=== PATIENT | female | born 1940 | race Caucasian/White ===

== ENCOUNTER → 2020-11-19 | Outpatient (CLI) | payer MEDICARE, OTHER | LOC: LAB 11:22 | PROVIDERS: ATTEND Student in an Organized Health Care Education/Training Program | DX: I48.21 Permanent atrial fibrillation (principal) | CPT/HCPCS: 36415; 85610 ==

== ENCOUNTER → 2020-11-26 | Outpatient (CLI) | payer MEDICARE, OTHER | LOC: LAB 10:50 | PROVIDERS: ATTEND Student in an Organized Health Care Education/Training Program | DX: I48.21 Permanent atrial fibrillation (principal) | CPT/HCPCS: 36415; 85610 ==

== ENCOUNTER → 2021-04-22 | Outpatient (CLI) | payer MEDICARE, OTHER | LOC: LAB 13:06 | PROVIDERS: ATTEND Student in an Organized Health Care Education/Training Program | DX: I48.21 Permanent atrial fibrillation (principal) | CPT/HCPCS: 36415; 85610 ==

== ENCOUNTER 2021-06-18 02:23 | Inpatient (IN) | payer MEDICARE, OTHER ==
[~2021-06-18] VITALS: Ht 162.6 cm; Wt 101.5 kg
--- NOTE | 2021-06-18 02:53 | PHYS DOC ---
Past History Past Medical History: CHF, Heart Disease, Hypothyroid Past Medical History Gout (MONICA GRACIA MD) General Adult EDM: Chief Complaint: BACK PAIN OR INJURY HPI: HPI: ".. I ve been falling... My back hurts... been sick.. a couple days.... weak... fever..." Patient is a 80 year old female who presents with above hx and complaints frequent falls the last 2 days, weakness, fever, nausea and vomiting, and lumbar sacral back pain. Pt. follows with Dr. Mervin Locke. Pt. is on Coumadin for cardiac valvular disease. Patient has history of both aortic and mitral valve issues. Has had a bovine aortic value and has mitral dysfunctions. Patient has had both Covid vaccinations with a booster. Patient did have flu vaccination 10 days ago. Patient has follows with Dr. Quesada at [facility]. Has followed with for CHF and CADz. The pt. somewhat a poor historian , has taken Ambien before coming to ED.. The son and states patient has been sick for the last 2 days with nausea and vomiting and falls. Pt. has past medical history of gout, hypertension, elevated cholesterol, insomnia, CHF, cor onary artery disease, chronic pain, hypothyroidism, subdural hematoma, and diabetes. Patient said previous thyroidectomy 1987, gallbladder in 1976. History of liver cyst, subdural hematoma in 2007. Heart valve replacement in 2015-aortic and ventral hernia repairs in 2020. (MONICA GRACIA MD) Review of Systems: Review of Systems: Constitutional: Complains of fever Eyes: Denies change in visual acuity HENT: Denies nasal congestion or sore throat Respiratory: Complains of shortness of breath Cardiovascular: Denies chest pain or edema GI: Complains of nausea and vomiting abdominal pain, . : Denies dysuria Musculoskeletal: Complains of lumbar sacral back pain and generalized joint pain Integument: Denies rash Neurologic: Denies headache, focal weakness or sensory changes Endocrine: Denies polyuria or polydipsia Lymphatic: Denies swollen glands Psychiatric: History of anxiety (MONICA GRACIA MD) Family History: Family History: Noncontributory to presentation (MONICA GRACIA MD) Current Medications: Current Meds: See nursing for home meds (MONICA GRACIA MD) Allergies: Allergies: Allergic to adhesive tape, sulfa, IVP dye and codeine's (MONICA GRACIA MD) Physical Exam: PE: Constitutional: Moderate acute distress, non-toxic appearance. [] HENT: Normocephalic, atraumatic, bilateral external ears normal, oropharynx moist, no oral exudates, nose normal. [] Eyes: PERRLA, EOMI, conjunctiva normal, no discharge. [] Neck: Normal range of motion, no tenderness, supple, no stridor.JVD siting position. Surgical scar Cardiovascular:Heart rate regular rhythm, Mitral / Aortic murmur. PMI to L:t. [] Lungs & Thorax: Bilateral breath sounds equal at apexes, with crackles throughout bilateral bases. Old midline surgical scar, . Some rhonchi on auscultation Abdomen: Bowel sounds normal, soft, no tenderness, no masses, no pulsatile masses. Obese. Multiple old surgery scars Skin: Warm, dry, no erythema, no rash. Poor turgor. Back: Lumbar sacral tenderness, no CVA tenderness. [] Extremities: No tenderness, no cyanosis, no clubbing, ROM intact, bilateral lower leg edema. [] No cording appreciated Neurologic: Alert and oriented X 3, but very slow to respond appear to be oversedated, moves all extremities on request, does have distal sensory, Psychologic: Affect anxious,, judgement impaired mood depressed (MONICA GRACIA MD) EKG: EKG: My interpretation EKG shows a sinus rhythm at 70 bpm. Slightly prolonged QT interval at 442 ms. QTC is 480 ms. No findings of acute STEMI with contralateral changes. Time of EKG is 0449 hrs. [] (MONICA GRACIA MD) Radiology/Procedures: Radiology/Procedures: [] (MONICA GRACIA MD) Impressions: CT LUMBAR SPINE WO, CT CHEST_ABDOMEN_ AND PELVIS WITHOUT CONTRAST INDICATION: fall, pain COMPARISON: None. TECHNIQUE: Multiple contiguous axial images were obtained throughout the chest, abdomen, and pelvis without the use of IV contrast. Axial images were reformatted into coronal and sagittal planes. One or more of the following dose reduction techniques were utilized: Automated exposure control (AEC), Adjustment of mA and/or kV according to patient size, Use of iterative reconstruction technique such as ASiR, CT scan done according to ALARA and image gently/image wisely. FINDINGS: There is no axillary, mediastinal, or hilar adenopathy, although evaluation of the hany is limited without IV contrast. Calcified mediastinal and hilar lymph nodes consistent with remote granulomatous disease. The thoracic aorta diameter is normal. Cardiomegaly. Coronary artery atheroscler otic disease. Aortic valve leaflet calcifications. Mitral annular opacification. There is no pericardial effusion. The central airways are patent. Bibasilar dependent and subsegmental atelectasis. Few small pulmonary nodules measuring up to 5 mm. Evaluation of solid abdominal viscera is limited without the use of IV contrast. However, the liver, gallbladder, spleen, pancreas, and adrenal glands are unremarkable. No hydronephrosis. Bilateral nonobstructive renal calculi. There is no significant mesenteric or retroperitoneal adenopathy identified, though evaluation is limited without intravenous contrast. No pneumoperitoneum. Mild free fluid in the right paracolic gutter and adjacent to the spleen. Colonic diverticulosis. Moderate aortoiliac atherosclerotic disease. The bladder is unremarkable. Uterus is present. There is no significant pelvic ascites. No significant iliac or inguinal adenopathy is identified. Acute L5 compression deformity with 30 percent loss of vertebral body height. No osseous retropulsion. IMPRESSION: 1. Acute L5 compression deformity with 30 percent height loss. No osseous retropulsion. 2. Evaluation of abdominal solid organs is impaired by lack of intravenous contrast. Allowing for this, there is mild scattered abdominal free fluid but no large hematoma or large solid organ laceration visualized. 3. Few small indeterminate pulmonary nodules measuring up to 5 mm. Consider 12 month follow-up chest CT to assess stability if there are risk factors (history of smoking, history of malignancy, etc.). 4. Colonic diverticulosis. 5. Nonobstructive renal calculi. Electronically signed by: Diomedes Moon MD (06/18/2021 6:49 AM) [facility] DICTATED AND SIGNED BY: DIOMEDES MOON MD DATE: 06/18/21 0634 CC: MERVIN LOCKE MD; MONICA GRACIA MD ~MTH0 0 CT HEAD AND C-SPINE WO Date: 06/18/2021 3:55 AM Clinical Indication: Reason: fall, neck pain / Spl. Instructions: / History: Comparison: None. Technique: 5 mm axial tomographic images were obtained of the head without contrast. These were viewed on brain and bone windows. Noncontrast CT of the cervical spine was performed. Sagittal and coronal reformats were performed and evaluated. One or more of the following dose reduction techniques were utilized: Automated exposure control (AEC), Adjustment of mA and/or kV according to patient size, Use of iterative reconstruction technique such as ASiR, CT scan done according to ALARA and image gently/image wisely HEAD FINDINGS: Mild generalized cerebral and cerebellar volume loss. Mild nonspecific periventricular hypoattenuation, most commonly seen with chronic small vessel ischemic disease. Postsurgical changes of right frontotemporal craniotomy with small area of underlying encephalomalacia. No intra- or extra-axial mass or fluid collection. No acute hemorrhage. The ventricles are normal in size, shape, and morphology. The jackson-white matter junction is normal. The basilar cisterns are patent. The visualized paranasal sinuses are normal. The visualized portions of the orbits and globes are normal. The mastoid air cells are clear. No aggressive osseous lesion or fracture. CERVICAL SPINE FINDINGS: The cervical spine is normally aligned. No acute fracture. No aggressive lytic or blastic osseous lesions. Moderate multilevel degenerative disc space height loss. Multilevel spinal canal stenosis secondary to disc protrusions and marginal osteophytes worst and moderate to severe C5-6. Multilevel severe neuroforaminal narrowing secondary to uncovertebral arthrosis. Multilevel severe facet arthrosis. Thyroidectomy. No cervical lymphadenopathy. Bilateral carotid atherosclerosis. The visualized aerodigestive tract is normal. The visualized portions of the lungs are clear. IMPRESSION: 1. No acute intracranial process. 2. No acute cervical spine fracture. Electronically signed by: Diomedes Moon MD (06/18/2021 6:34 AM) [facility] DICTATED AND SIGNED BY: DIOMEDES MOON MD DATE: 06/18/21629 CC: MERVIN LOCKE MD; MONICA GRACIA MD ~MTH0 0 XR ABDOMEN COMP ACUTE INDICATION: Reason: nv- / Spl. Instructions: / History: . COMPARISON STUDY: None. FINDINGS: Lungs: Normal lung volume. No pulmonary mass or consolidation. The tracheobronchial tree and hilar structures are normal. Pleura: No pleural effusion or pneumothorax. Heart and Mediastinum: Cardiomegaly. Tortuosity of the thoracic aorta. Median sternotomy. Abdomen: Nonobstructive bowel gas pattern. No free air. IMPRESSION: Nonobstructive bowel gas pattern. No consolidation. Electronically signed by: Diomedes Moon MD (06/18/2021 6:50 AM) [facility] DICTATED AND SIGNED BY: DIOMEDES MOON MD DATE: 06/18/21 0649 CC: MERVIN LOCKE MD; MONICA GRACIA MD ~MTH0 0 (MARGO BOB DO) Heart Score: C/O Chest Pain: No HEART Score for Chest Pain: HEART Score for Chest Pain Response (Comments) Value History Moderately Suspicious 1 ECG Nonspecific Repolarizatio 1 Age > 65 2 Risk Factors 1 or 2 Risk Factors 1 Troponin >3 x Normal Limit 2 Total 7 Risk Factors: Risk Factors: DM, Current or recent (<one month) smoker, HTN, HLP, family history of CAD, obesity. Risk Scores: Score 0 - 3: 2.5% MACE over next 6 weeks - Discharge Home Score 4 - 6: 20.3% MACE over next 6 weeks - Admit for Clinical Observation Score 7 - 10: 72.7% MACE over next 6 weeks - Early Invasive Strategies (MONICA GRACIA MD) Course & Med Decision Making: Course & Med Decision Making Pertinent Labs and Imaging studies reviewed. (See chart for details) Endorsed to Monica Polanco at shift change. Impression: 1. Falling 2. CHF-BNP 7854 3. Elevated Trop 72 4. Anemia Hgb 11.1 5. Thrombocytopenia 55 6. Renal Insuf. BUN 45/ Creat 1.6 7. Mild Elevation AST - 73 8. Back Pain- Lumbar Sacral [] (MONICA GRACIA MD) Course & Med Decision Making The patient's CT scans came back showing mild atelectasis and acute L5 compression fracture. This is likely the cause of the patient's low back pain. She has an elevated proBNP and appears to be having some mobile exacerbation of CHF. Patient has been more alert and aware. She is able to answer questions but is alert and oriented x4. I have discussed admitting the patient for trending of her troponins and management of her CHF. She would prefer to be admitted to this facility. She refuses to go to [facility]. I spoke with hospitalist, Dr. Whitney and he has accepted the patient for admission. (MARGO BOB DO) Dragon Disclaimer: Dragon Disclaimer: This electronic medical record was generated, in whole or in part, using a voice recognition dictation system. (MONICA GRACIA MD) Departure Departure: Impression: Primary Impression: Compression fracture Additional Impressions: CHF exacerbation AMS (altered mental status) Qualified Codes: R41.0 - Disorientation, unspecified Elevated troponin I level Disposition: ADMITTED INPATIENT Admitting Physician: Viridiana Whitney (MARGO BOB DO) Condition: STABLE Referrals: MERVIN LOCKE MD (PCP) MONICA GRACIA MD Jun 18, 2021 02:53 MARGO BOB DO Jun 18, 2021 07:46
[2021-06-18] MEDS ORDERED: IV RINGERS SOLUTION,LACTATED 1,000 ML IV SCH (04:00)
[2021-06-18 04:14] LABS: BASO % 0 % (0-3); EOS % 0 % (0-3); HEMATOCRIT 34.2 % (36.0-47.0); HEMOGLOBIN 11.1 g/dL (12.0-15.5); LYMPH # 0.3 x10^3/uL (1.0-4.8); LYMPH % 6 % (24-48); MEAN CORPUSCULAR HEMOGLOBIN 31 pg (25-35); MEAN CORPUSCULAR HGB CONC 33 g/dL (31-37); MEAN CORPUSCULAR VOLUME 94 fL (79-100); MONO # 0.4 x10^3/uL (0.0-1.1); MONO % 7 % (0-9); NEUT % 87 % (31-73); PLATELET COUNT 55 x10^3/uL (140-400); RED BLOOD COUNT 3.64 x10^6/uL (3.50-5.40); RED CELL DISTRIBUTION WIDTH 16.2 % (11.5-14.5); WHITE BLOOD COUNT 5.7 x10^3/uL (4.0-11.0)
[2021-06-18 04:39] LABS: ALBUMIN 3.2 g/dL (3.4-5.0); CALCIUM 8.9 mg/dL (8.5-10.1); CREATININE 1.6 mg/dL (0.6-1.0); DIRECT BILIRUBIN 0.5 mg/dL (0.0-0.2); MAGNESIUM 1.7 mg/dL (1.8-2.4); POTASSIUM 3.6 mmol/L (3.5-5.1); TOTAL BILIRUBIN 0.9 mg/dL (0.2-1.0); TOTAL PROTEIN 6.2 g/dL (6.4-8.2)
--- NOTE | 2021-06-18 05:53 | EKG ---
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
--- NOTE | 2021-06-18 06:36 | RAD ---
CT HEAD AND C-SPINE WO Date: 06/18/2021 3:55 AM Clinical Indication: Reason: fall, neck pain / Spl. Instructions: / History: Comparison: None. Technique: 5 mm axial tomographic images were obtained of the head without contrast. These were view ed on brain and bone windows. Noncontrast CT of the cervical spine was performed. Sagittal and blank l reformats were performed and evaluated. One or more of the following dose reduction techniques were utilized: Automated exposure control (AEC), Adjustment of mA and/or kV according to patient size, Us e of iterative reconstruction technique such as ASiR, CT scan done according to ALARA and image gentl y/image wisely HEAD FINDINGS: Mild generalized cerebral and cerebellar volume loss. Mild nonspecific periventricular hypoattenuatio n, most commonly seen with chronic small vessel ischemic disease. Postsurgical changes of right front otemporal craniotomy with small area of underlying encephalomalacia. No intra- or extra-axial mass or fluid collection. No acute hemorrhage. The ventricles are normal in size, shape, and morphology. The jackson-white matter junction is normal. The basilar cisterns are paten t. The visualized paranasal sinuses are normal. The visualized portions of the orbits and globes are no rmal. The mastoid air cells are clear. No aggressive osseous lesion or fracture. CERVICAL SPINE FINDINGS: The cervical spine is normally aligned. No acute fracture. No aggressive lytic or blastic osseous les ions. Moderate multilevel degenerative disc space height loss. Multilevel spinal canal stenosis secondary t o disc protrusions and marginal osteophytes worst and moderate to severe C5-6. Multilevel severe neur oforaminal narrowing secondary to uncovertebral arthrosis. Multilevel severe facet arthrosis. Thyroidectomy. No cervical lymphadenopathy. Bilateral carotid atherosclerosis. The visualized aerodig estive tract is normal. The visualized portions of the lungs are clear. IMPRESSION: 1. No acute intracranial process. 2. No acute cervical spine fracture. Electronically signed by: Skyler Moon MD (06/18/2021 6:34 AM) [facility]
[2021-06-18 06:37] LABS: INFLUENZA A PATIENT NEGATIVE (NEGATIVE); INFLUENZA B PATIENT NEGATIVE (NEGATIVE)
--- NOTE | 2021-06-18 06:52 | RAD ---
CT LUMBAR SPINE WO, CT CHEST_ABDOMEN_ AND PELVIS WITHOUT CONTRAST INDICATION: fall, pain COMPARISON: None. TECHNIQUE: Multiple contiguous axial images were obtained throughout the chest, abdomen, and pelvis without the use of IV contrast. Axial images were reformatted into coronal and sagittal planes. One or more of th e following dose reduction techniques were utilized: Automated exposure control (AEC), Adjustment of mA and/or kV according to patient size, Use of iterative reconstruction technique such as ASiR, CT sc an done according to ALARA and image gently/image wisely. FINDINGS: There is no axillary, mediastinal, or hilar adenopathy, although evaluation of the hany is limited wi thout IV contrast. Calcified mediastinal and hilar lymph nodes consistent with remote granulomatous d isease. The thoracic aorta diameter is normal. Cardiomegaly. Coronary artery atherosclerotic disease. Aortic valve leaflet calcifications. Mitral annular opacification. There is no pericardial effusion. The central airways are patent. Bibasilar dependent and subsegmental atelectasis. Few small pulmonary nodules measuring up to 5 mm. Evaluation of solid abdominal viscera is limited without the use of IV contrast. However, the liver, gallbladder, spleen, pancreas, and adrenal glands are unremarkable. No hydronephrosis. Bilateral no nobstructive renal calculi. There is no significant mesenteric or retroperitoneal adenopathy identif ied, though evaluation is limited without intravenous contrast. No pneumoperitoneum. Mild free fluid in the right paracolic gutter and adjacent to the spleen. Colonic diverticulosis. Moderate aortoili ac atherosclerotic disease. The bladder is unremarkable. Uterus is present. There is no significant pelvic ascites. No significa nt iliac or inguinal adenopathy is identified. Acute L5 compression deformity with 30 percent loss of vertebral body height. No osseous retropulsion . IMPRESSION: 1. Acute L5 compression deformity with 30 percent height loss. No osseous retropulsion. 2. Evaluation of abdominal solid organs is impaired by lack of intravenous contrast. Allowing for thi s, there is mild scattered abdominal free fluid but no large hematoma or large solid organ laceration visualized. 3. Few small indeterminate pulmonary nodules measuring up to 5 mm. Consider 12 month follow-up chest CT to assess stability if there are risk factors (history of smoking, history of malignancy, etc.). 4. Colonic diverticulosis. 5. Nonobstructive renal calculi. Electronically signed by: Skyler Moon MD (06/18/2021 6:49 AM) [facility]
--- NOTE | 2021-06-18 06:52 | RAD ---
XR ABDOMEN COMP ACUTE INDICATION: Reason: nv- / Spl. Instructions: / History: . COMPARISON STUDY: None. FINDINGS: Lungs: Normal lung volume. No pulmonary mass or consolidation. The tracheobronchial tree and hilar st ructures are normal. Pleura: No pleural effusion or pneumothorax. Heart and Mediastinum: Cardiomegaly. Tortuosity of the thoracic aorta. Median sternotomy. Abdomen: Nonobstructive bowel gas pattern. No free air. IMPRESSION: Nonobstructive bowel gas pattern. No consolidation. Electronically signed by: Skyler Moon MD (06/18/2021 6:50 AM) [facility]
[2021-06-18] MEDS ORDERED: AMLO-186 PO (07:07)
[2021-06-18] MEDS ORDERED: ZOLP10TA PO (07:07)
[2021-06-18] MEDS ORDERED: coumadin PO ×2 (07:07)
[2021-06-18] MEDS ORDERED: metformin (07:07)
[2021-06-18] MEDS ORDERED: CHOL10004 PO (07:07)
[2021-06-18] MEDS ORDERED: LOSA100T14 PO (07:07)
[2021-06-18] MEDS ORDERED: AMIT50TA PO (07:07)
[2021-06-18] MEDS ORDERED: CYAN500T7 PO (07:07)
[2021-06-18] MEDS ORDERED: ATOR10TA60 PO (07:07)
[2021-06-18] MEDS ORDERED: LEVO125C3 PO (07:07)
[2021-06-18] MEDS ORDERED: IBUP-571 PO (07:07)
[2021-06-18] MEDS ORDERED: AMIO100T4 PO (07:07)
[2021-06-18] MEDS ORDERED: CARV12.547 PO (07:07)
[2021-06-18] MEDS ORDERED: HYDR-2155 PO (07:07)
[2021-06-18] MEDS ORDERED: ALLO300T PO (07:07)
[2021-06-18] MEDS ORDERED: POTA10TA PO (07:07)
[2021-06-18] MEDS ORDERED: FURO40TA4 PO (07:07)
[2021-06-18] MEDS ORDERED: MAGNESIUM SULFATE 1GM 100 ML IV ONE (07:30)
[2021-06-18] MEDS ORDERED: FUROSEMIDE 40 MG/4 ML VIAL IVP ONE ×2 (07:30→09:30)
[2021-06-18 08:12] LABS: BARBITURATES NEG (NEG); BENZODIAZEPINES NEG (NEG); CANNABINOIDS NEG (NEG); COCAINE NEG (NEG); METHADONE NEG (NEG); OPIATES POS (NEG); PHENCYCLIDINE NEG (NEG)
[2021-06-18 08:16] LABS: BACTERIA,URINE 0 /HPF (0-FEW); BILIRUBIN,URINE NEG (NEG); CLARITY,URINE HAZY; COLOR,URINE YELLOW; GLUCOSE,URINE NEG (NEG); HYALINE CASTS, URINE OCC /HPF; NITRITE,URINE NEG (NEG); SQUAMOUS EPITHELIAL CELL,UR MOD /LPF; UROBILINOGEN,URINE 0.2 mg/dL (0.2 mg/dL)
[2021-06-18 08:21] LABS: AMPHETAMINE/METHAMPHETAMINE NEG (NEG)
[2021-06-18] MEDS ORDERED: ONDANSETRON PF 4 MG/2 ML VIAL. IVP PRN (09:30)
[2021-06-18] MEDS ORDERED: ACETAMINOPHEN 325 MG TABLET PO PRN (09:30)
[2021-06-18 14:44] VITALS: BP 92/54
[2021-06-18] MEDS ORDERED: HYDROcodone/APAP 5/325MG 1 TAB TABLET PO PRN (16:15)
[2021-06-18] MEDS ORDERED: ZOLPIDEM 5 MG TABLET. PO PRN (16:45)
[2021-06-18] MEDS: CARVEDILOL 12.5 MG TABLET PO SCH (16:53)
[2021-06-18] MEDS: ALLOPURINOL 300 MG TABLET. PO SCH (16:53)
--- NOTE | 2021-06-18 17:31 | HP ---
DATE OF SERVICE: 06/18/2021 ADMIT DATE: 06/18/2021 HISTORY OF PRESENT ILLNESS: The patient is an 80-year-old female patient who presented to the Emergency Room with a complaint of back pain. She stated that she has been falling, her back hurts. She has been sick a couple of days ago, weak with fever. Apparently, the patient has fallen multiple times, the last fall was 2 days ago. She also complained of weakness, fever, nausea, vomiting and lower back pain. Her primary care physician is Dr. Jeffries ____. She is on Coumadin for cardiac valve disease. She apparently has both aortic and mitral valve issues, had a bovine aortic valve and has mitral dysfunction. According to her, her primary bus driver supervisor has made multiple changes in her medication over the last 6 weeks and apparently that might be the reason why she has been falling multiple times. She apparently was not forthcoming with any information, as she apparently taking Ambien before coming to ED. Her son and state the patient has been sick for the last 2 days with nausea and vomiting and falls after eating burritos. She was basically extensively investigated in the Emergency Room and has had lab work as well as imaging studies. Her CBC showed that she has normochromic normocytic anemia with normal white cell count and thrombocytopenia. Her prothrombin time was 30.4, INR of 3, APTT 42 and D-dimer was 152. Her chemistry showed that she has impaired kidney function, with no other labs to compare with. Her troponin was slightly elevated and her BNP was high at 7854. Her TSH is somewhat on the lower side at 0.328, the lower limit of normal 0.358. Her urinalysis showed 5-10 wbc's, 11-20 rbc's, negative for nitrite and no bacteria. Her toxic screen was positive for opiates and negative for all other medication. Her influenza A and B were negative. Coronavirus by PCR was negative. Did have acute abdomen series, which showed a nonobstructive bowel gas pattern. The lungs showed no pulmonary mass or consolidation. The tracheobronchial tree and hilar structures are normal. There is no pleural effusion or pneumothorax. There is cardiomegaly, tortuous thoracic aorta, median sternotomy. She had a CT scan of chest, abdomen and pelvis without contrast, which showed that the patient has acute L5 compression deformity with 30% height loss. No osseous retropulsion. Evaluation of abdominal solid organs is impaired by lack of intravenous contrast allowing for test. There is mild scattered abdominal free fluid, but no large hematoma or large solid organ laceration visualized. Few small indeterminate pulmonary nodules measuring up to 5 mm, consider 12-month followup chest CT to assess stability. She has colonic diverticulosis, nonobstructing renal calculi. The patient was treated with IV Lasix, magnesium sulfate and was admitted and also treated with fentanyl citrate for back pain. She was diagnosed with L1 compression fracture, recurrent falls and dizziness. Congestive heart failure, slightly elevated troponin and normochromic normocytic anemia, thrombocytopenia, chronic renal insufficiency and back pain due to L1 compression fracture. We will obviously could reconcile all her medications and consult the Cardiology team to evaluate for assessment, evaluation, and treatment. PAST MEDICAL HISTORY: Significant for type 2 diabetes mellitus, hypertension, aortic and mitral valve replacement, atrial fibrillation, congestive heart failure, nephrolithiasis, and hypothyroidism. PAST SURGICAL HISTORY: Significant for thyroidectomy, aortic and mitral valve replacement, liver cyst removal, cholecystectomy, appendectomy, bilateral cataract extraction. She underwent transesophageal echocardiogram and colonoscopy x2. ALLERGIES: SHE IS ALLERGIC TO IODINATED CONTRAST MEDIA, SULFA DRUGS, ADHESIVE TAPES AND CODEINE. MEDICATIONS: She is currently on the following medications: She is on amiodarone 100 mg once a day, atorvastatin calcium 10 mg once a day, carvedilol 12.5 mg twice a day, amlodipine besylate 5 mg once a day, losartan potassium 100 mg once a day, ibuprofen 600 mg daily as needed for pain, hydrocodone/APAP 5/325 one tablet every 6 hours, amitriptyline 50 mg at bedtime, Ambien 10 mg at bedtime, potassium chloride 10 mEq once a day, furosemide 40 mg daily, levothyroxine sodium 125 mcg once a day, cyanocobalamin 500 mcg tablet daily. She is on cholecalciferol 1000 mcg p.o. daily, allopurinol 300 mg once a day and Coumadin 5 and 7.5. FAMILY HISTORY: She has 2 brothers and 1 sister, all younger. Her sister has glaucoma. Her mother at age of 80 because of Hodgkin's lymphoma. Father at age of 85, the cause of is not known. SOCIAL HISTORY: She is for the last 36 years. She has 4 children from previous marriage. Her has 1 son. She has never smoked, does not drink alcohol or recreational drugs. 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 REVIEW OF SYSTEMS: She has bilateral cataract extraction, but denied any glaucoma or macular degeneration. Denied any earache, tinnitus or sensory deafness. Denied nosebleed, stuffy nose or postnasal drip. Denied any sore throat, sore tongue, toothache, hoarseness of voice or difficulty swallowing. Did have an episode of nausea and vomiting about 5 times last Sunday. Denied any diarrhea. Denied any dysuria, frequency or hematuria. Denied any chest pain. Did complain of shortness of breath as well as orthopnea, but denied any paroxysmal nocturnal dyspnea. Denied any cough, phlegm or hemoptysis. Did complain of dizziness, but denied any chills, rigors or fever. PHYSICAL EXAMINATION: GENERAL: On arrival to the Emergency Room, she was slightly tachypneic, pale, not jaundiced, cyanosed, no lymphadenopathy, no thyromegaly, no jugular venous distention. No lower limb edema. VITAL SIGNS: Her heart rate was 70, blood pressure is 111/43, temperature was 99.6, respiratory rate 22, and oxygen saturation was 98% on 4 liters of oxygen. HEAD, EYES, EARS, NOSE, AND THROAT: Normocephalic, atraumatic. NECK: Supple. HEART: Showed normal first and second heart sounds. No gallop, rub or murmur. CHEST: Clear to auscultation, no crepitation or rhonchi. ABDOMEN: Distended, soft, nontender, no guarding or rigidity. No organomegaly. All hernial orifice intact. Bowel sounds normal. NEUROLOGIC: She is awake, alert, responding appropriately. All cranial nerves intact. She moves extremities without difficulty. She normally ambulates without assistance or assistive devices. LABORATORY DATA: On admission showed a white cell count 5700, hemoglobin 11, hematocrit 34, MCV 94 and platelet count of 55,000. Her chemistry showed a serum sodium 134, potassium 3.6, chloride 98, bicarbonate 25, anion gap of 11, BUN 45, creatinine 1.6. Estimated GFR was 31 mL per minute. Her glucose was 96, calcium was 8.9, magnesium was 1.7. Total bilirubin, AST, ALT, alkaline phosphatase were normal. CK was 434. Troponin I high sensitivity was 72 and her beta natriuretic peptide was 7854. Total protein 6.2, albumin was 3.2, serum lipase was 49 and TSH was 0.328. Her prothrombin time was 30.4, INR of 3, APTT was 42 and D-dimer was 1.52. ASSESSMENT AND PLAN: The patient was admitted with recurrent falls, acute L1 compression fracture, congestive heart failure, normochromic normocytic anemia, thrombocytopenia, chronic renal insufficiency and back pain. We will reconcile all her medications, although I think given her low blood pressure, I will hold some of her antihypertensive medications and I will consult our bus driver supervisor to assist in her management. We will continue with fentanyl patch. JENNY/CORIN/SACHA DR: Gillian TID: [id number]
[2021-06-18 19:30] VITALS: BP 105/64
[2021-06-18] MEDS ORDERED: AMITRIPTYLINE HCL 50 MG TABLET PO SCH (21:00)
[2021-06-18] MEDS: ATORVASTATIN CALCIUM 10 MG TABLET. PO SCH (21:49)
[2021-06-18 23:09] VITALS: BP 103/62
[2021-06-19 06:38] VITALS: BP 108/67
[2021-06-19 07:30] LABS: HEMOGLOBIN 11.9 g/dL (12.0-15.5); RED BLOOD COUNT 3.82 x10^6/uL (3.50-5.40); RED CELL DISTRIBUTION WIDTH 16.3 % (11.5-14.5)
[2021-06-19 07:32] LABS: ALBUMIN 2.9 g/dL (3.4-5.0); ALBUMIN/GLOBULIN RATIO 0.9 (1.0-1.7); CALCIUM 8.9 mg/dL (8.5-10.1); CREATININE 1.3 mg/dL (0.6-1.0); GFR 39.4; POTASSIUM 3.6 mmol/L (3.5-5.1); TOTAL BILIRUBIN 0.8 mg/dL (0.2-1.0); TOTAL PROTEIN 6.1 g/dL (6.4-8.2)
[2021-06-19] MEDS: POTASSIUM CHLORIDE 10 MEQ TABLET.ER. PO SCH (10:51)
[2021-06-19] MEDS: CHOLECALCIFEROL (VITAMIN D3) 1,000 UNIT TABLET PO SCH (10:51)
[2021-06-19] MEDS: CARVEDILOL 12.5 MG TABLET PO SCH ×2 (10:52→17:00)
[2021-06-19] MEDS: CYANOCOBALAMIN (VITAMIN B-12) 250 MCG TABLET. PO SCH (10:52)
[2021-06-19] MEDS: AMIODARONE HCL 200 MG TABLET. PO SCH (10:52)
[2021-06-19 11:36] VITALS: BP 137/71
[2021-06-19] MEDS ORDERED: PHYTONADIONE 10 MG/ML AMPUL. SQ ONE (13:45)
[2021-06-19 14:36] VITALS: BP 127/67
[2021-06-19] MEDS: LIDOCAINE (700MG/PATCH) PATCH. TD SCH (15:00)
[2021-06-19 16:00] LABS: BGAS PH 7.4 (7.35-7.45)
[2021-06-19] MEDS ORDERED: WARFARIN 5 MG TABLET. PO SCH (16:00)
[2021-06-19] MEDS: ALLOPURINOL 300 MG TABLET. PO SCH (18:00)
--- NOTE | 2021-06-19 18:37 | CONS ---
DATE OF CONSULTATION: 06/19/2021 REASON FOR CONSULTATION: Elevated troponin. CONSULTING PHYSICIAN: Dr. Whitney. HISTORY OF PRESENT ILLNESS: The patient is an 80-year-old woman who comes into the hospital for a complaint of back pain. She has been diagnosed with a compression fracture. Cardiology has been asked to evaluate her due to an elevated troponin in the setting of prior history of aortic valve disease and atrial fibrillation, for which she is on anticoagulation with warfarin. The patient has been on multiple antihypertensive drugs as listed below. Over the last several weeks, has had changes to these medications and ultimately has been feeling dizzy and lightheaded. Nonetheless, upon arrival here, her blood pressure was low and therefore her medications have been held so far. Currently, the patient is mildly confused, but denies any chest pain or dyspnea. No syncope at this time. No obvious palpitations to report. The patient's initial infectious workup including urinalysis and coronavirus PCR has been negative. PAST MEDICAL HISTORY: 1. Atrial fibrillation, paroxysmal, on anticoagulation with warfarin, currently held for plans for possible interventional radiology intervention for her back pain. 2. Hypertension, currently hypotensive. 3. Dyslipidemia. 4. History of bovine aortic valve replacement, presumably for aortic stenosis. 5. Type 2 diabetes. 6. Presumed congestive heart failure history based on chart review, but unclear of her ejection fraction. PAST SURGICAL HISTORY: Significant for thyroidectomy, cholecystectomy, appendectomy, cataract surgery. ALLERGIES: IODINATED CONTRAST MEDIA, SULFA DRUGS, AND ADHESIVE TAPES AND CODEINE. CURRENT CARDIOVASCULAR MEDICATIONS: 1. Losartan 100 mg daily. 2. Atorvastatin 10 mg daily. 3. Amlodipine 5 mg daily. 4. Carvedilol 12.5 mg p.o. b.i.d. 5. Amiodarone 100 mg daily. 6. Coumadin as directed. 7. Lasix 40 mg daily. 8. Potassium 10 mEq daily. REVIEW OF SYSTEMS: Negative for 10 out of 14 systems reviewed, unless otherwise mentioned above in HPI. FAMILY HISTORY: Noncontributory. SOCIAL HISTORY: The patient is . Denies any alcohol, tobacco, or illicit drug use. PHYSICAL EXAMINATION: VITAL SIGNS: Afebrile, 97, 20, 127/67, 94% on 2 liters nasal cannula. GENERAL: She is pleasantly confused, but alert and oriented to self, but not to place and time.: She is well developed and well nourished. HEAD AND NECK: Unremarkable. CARDIAC: Regular rate and rhythm with a soft systolic murmur consistent with aortic flow murmur. No obvious mitral insufficiency noted. ABDOMEN: Obese, protuberant, nontender. LUNGS: Clear to auscultation bilaterally. EXTREMITIES: Lower extremities without any cyanosis or edema. 2+ radial and dorsalis pedis pulses. NEUROLOGIC: No obvious focal deficits. DIAGNOSTIC STUDIES: Hemoglobin and creatinine within normal limits. Platelets are decreased at 51. Chest x-ray is unremarkable. CT of the chest, abdomen and pelvis is notable for an L5 compression fracture. Otherwise, no significant abnormality. EKG is unremarkable. IMPRESSION: 1. Acute compression fracture and fall, etiology is unclear. 2. Known history of aortic valve replacement with a bovine valve and paroxysmal atrial fibrillation without any current exacerbation at this time. 3. Presumed acute on chronic diastolic heart failure based on elevated BNP, although clinically she does not appear to be volume overloaded. 4. Elevated troponin, likely secondary to stress without any clear evidence of ischemia based on history or objective findings of her EKG. RECOMMENDATIONS: Continue supportive care from a cardiovascular perspective. At this time, her antihypertensives have been held. Continue atorvastatin. Continue carvedilol if tolerated and amiodarone. We will try to obtain records from [facility] for delineation of her coronary anatomy, valvular disease with recent echocardiogram, etc. Thank you for this consultation. XAVI GOODMAN: Sugar TID: [id number]
--- NOTE | 2021-06-19 19:40 | PN ---
DATE: 06/19/2021 SUBJECTIVE: The patient is resting almost flat in bed, in no apparent distress. She is very lethargic, hallucinating. After she received her fentanyl in the morning, she continued to have severe pain whenever she changes position or sits up from lying flat; however, she denied any shortness of breath. PHYSICAL EXAMINATION: GENERAL: When I examined her, she was somewhat pale, not jaundiced, cyanosed. No lymphadenopathy, no thyromegaly, no jugular venous distention, no lower limb edema. VITAL SIGNS: Her heart rate was 76, blood pressure is 137/71, temperature was 98.9, respiratory rate 20, and oxygen saturation was 94% on room air. HEAD, EYES, EARS, NOSE, AND THROAT: Normocephalic, atraumatic. NECK: Supple. HEART: Showed normal first and second heart sounds, no gallop or murmur. CHEST: Clear to auscultation, no crepitation or rhonchi. ABDOMEN: Distended, soft, nontender. NEUROLOGIC: She was very lethargic, but arousable. All her cranial nerves intact. She moves extremities spontaneously. She has an indwelling Ortiz catheter. Her intake and output are incompletely recorded. LABORATORY DATA: This morning showed her prothrombin time was 47.8, INR of 4.7. Her white cell count was 5000, hemoglobin 11.9, hematocrit 36, MCV 94, and platelet count of 51,000. Her chemistry showed a serum sodium 134, potassium 3.6, chloride 99, bicarbonate 29, anion gap of 6, BUN 44, creatinine 1.3. Her estimated GFR was 39 mL per minute. Her glucose was 92, calcium was 8.9. Total bilirubin, AST, ALT, alkaline phosphatase were normal. Total protein 6.1, albumin was 2.9. ASSESSMENT: 1. Recurrent falls. 2. Acute L1 compression fracture. 3. Congestive heart failure. 4. Normochromic normocytic anemia. 5. Thrombocytopenia. 6. [id number] renal failure. PLAN: To continue holding her antihypertensive medication as well as Coumadin. We will start also on Lidoderm patches on her back and I will arrange for her to be transferred to [facility] as she probably would benefit from vertebroplasty, although obviously, she has thrombocytopenia and she is on Coumadin with supratherapeutic INR. JENNY/DEMETRA DR: JENNY/mckenzie TID: [id number]
[2021-06-19 19:48] VITALS: BP 132/72
[2021-06-19 20:08] LABS: BACTERIA,URINE 0 /HPF (0-FEW); BILIRUBIN,URINE NEG (NEG); CLARITY,URINE CLEAR; COLOR,URINE YELLOW; GLUCOSE,URINE NEG (NEG); NITRITE,URINE NEG (NEG); RBC,URINE 20-40 /HPF (0-2); UROBILINOGEN,URINE 0.2 mg/dL (0.2 mg/dL); WBC,URINE 0 /HPF (0-4)
[2021-06-19] MEDS: ATORVASTATIN CALCIUM 10 MG TABLET. PO SCH (20:08)
[2021-06-19] MEDS ORDERED: AMITRIPTYLINE HCL 25 MG TABLET PO SCH (21:00)
[2021-06-19] MEDS ORDERED: PATCH REMOVAL. MC SCH (21:00)
[2021-06-19 22:52] VITALS: BP 111/58
[2021-06-20 04:41] VITALS: BP 119/77
[2021-06-20 07:19] LABS: ALBUMIN 2.9 g/dL (3.4-5.0); ALBUMIN/GLOBULIN RATIO 0.9 (1.0-1.7); CALCIUM 9.2 mg/dL (8.5-10.1); GFR 53.3; POTASSIUM 3.2 mmol/L (3.5-5.1); TOTAL BILIRUBIN 1.1 mg/dL (0.2-1.0); TOTAL PROTEIN 6.3 g/dL (6.4-8.2)
--- NOTE | 2021-06-20 08:11 | PDOC ---
CARDIO Progress Notes Date & Time Date of Service DATE: 06/20/21 TIME: 08:01 Time of Evaluation 08:01 Subjective Notes c/o back pain, confused. Vitals Vitals Vital Signs Date Time Temp Pulse Resp B/P (MAP) Pulse Ox O2 Delivery O2 Flow Rate FiO2 06/20/21 04:41 98.1 78 20 119/77 (91) 93 Room Air 06/19/21 22:52 3.0 Weight Weight [ ] Input and Output I.O. Intake and Output 06/20/21 07:00 Intake Total 1140 ml Output Total 1600 ml Balance -460 ml Intake Oral 1140 ml Output Urine Total 1600 ml Laboratory Labs Laboratory Tests Test 06/18/21 12:25 06/18/21 15:29 06/19/21 07:00 06/19/21 15:40 Troponin I High Sensitivity 71 ng/L (4-50) 69 ng/L (4-50) White Blood Count 5.0 x10^3/uL (4.0-11.0) Red Blood Count 3.82 x10^6/uL (3.50-5.40) Hemoglobin 11.9 g/dL (12.0-15.5) Hematocrit 36.0 % (36.0-47.0) Mean Corpuscular Volume 94 fL (79-100) Mean Corpuscular Hemoglobin 31 pg (25-35) Mean Corpuscular Hemoglobin Concent 33 g/dL (31-37) Red Cell Distribution Width 16.3 % (11.5-14.5) Platelet Count 51 x10^3/uL (140-400) Prothrombin Time 47.8 SEC (9.4-11.4) Prothromb Time International Ratio 4.7 (0.9-1.1) Sodium Level 134 mmol/L (136-145) Potassium Level 3.6 mmol/L (3.5-5.1) Chloride Level 99 mmol/L (98-107) Carbon Dioxide Level 29 mmol/L (21-32) Anion Gap 6 (6-14) Blood Urea Nitrogen 44 mg/dL (7-20) Creatinine 1.3 mg/dL (0.6-1.0) Estimated GFR (Cockcroft-Gault) 39.4 BUN/Creatinine Ratio 34 (6-20) Glucose Level 92 mg/dL (70-99) Calcium Level 8.9 mg/dL (8.5-10.1) Total Bilirubin 0.8 mg/dL (0.2-1.0) Aspartate Amino Transf (AST/SGOT) 61 U/L (15-37) Alanine Aminotransferase (ALT/SGPT) 46 U/L (14-59) Alkaline Phosphatase 53 U/L (46-116) Total Protein 6.1 g/dL (6.4-8.2) Albumin 2.9 g/dL (3.4-5.0) Albumin/Globulin Ratio 0.9 (1.0-1.7) Blood Gas pH 7.40 (7.35-7.45) Blood Gas PCO2 44 mmHg (35-45) Blood Gas PO2 86 mmHg (71-100) Blood Gas HCO3 28 mmol/L (22-26) Arterial Bld O2 Saturation (Calc) 96 % (92-99) FiO2 26 % Test 06/19/21 19:30 06/19/21 21:37 06/20/21 06:30 06/20/21 07:30 Urine Collection Type Clean catch Urine Color Yellow Urine Clarity Clear Urine pH 6.0 Urine Specific [place] 1.015 Urine Protein 30 mg/dl (NEG-TRACE) Urine Glucose (UA) Neg mg/dL (NEG) Urine Ketones (Stick) Neg mg/dL (NEG) Urine Blood Large (NEG) Urine Nitrite Neg (NEG) Urine Bilirubin Neg (NEG) Urine Urobilinogen Dipstick 0.2 mg/dL (0.2 mg/dL) Urine Leukocyte Esterase Neg (NEG) Urine RBC 20-40 /HPF (0-2) Urine WBC 0 /HPF (0-4) Urine Bacteria 0 /HPF (0-FEW) Glucose (Fingerstick) 137 mg/dL (70-99) 104 mg/dL (70-99) Sodium Level 138 mmol/L (136-145) Potassium Level 3.2 mmol/L (3.5-5.1) Chloride Level 101 mmol/L (98-107) Carbon Dioxide Level 29 mmol/L (21-32) Anion Gap 8 (6-14) Blood Urea Nitrogen 36 mg/dL (7-20) Creatinine 1.0 mg/dL (0.6-1.0) Estimated GFR (Cockcroft-Gault) 53.3 BUN/Creatinine Ratio 36 (6-20) Glucose Level 124 mg/dL (70-99) Lactic Acid Level 1.3 mmol/L (0.4-2.0) Calcium Level 9.2 mg/dL (8.5-10.1) Total Bilirubin 1.1 mg/dL (0.2-1.0) Aspartate Amino Transf (AST/SGOT) 44 U/L (15-37) Alanine Aminotransferase (ALT/SGPT) 38 U/L (14-59) Alkaline Phosphatase 55 U/L (46-116) Total Protein 6.3 g/dL (6.4-8.2) Albumin 2.9 g/dL (3.4-5.0) Albumin/Globulin Ratio 0.9 (1.0-1.7) Microbiology Micro Microbiology 06/18/21 Urine Culture - Final, Complete Physical Exams HEENT: Neck Supple W Full Motion Chest: Symmetric Lungs: Other (diminished bases) Heart: RRR (SR. keeps pulling tele off) Abdomen: Soft N/T Extremities: Other (trace bilateral LE edema ) Neurology: alert, follow commands, other (confused ) Assessment Assessment 1. Weakness,recurrent falls with acute lumbar compression fracture 2. s/p bovine aortic valve replacement 3. PAFIB; on amiodarone for rhythm maintenance 3. Acute on chronic diastolic heart failure; appears compensated 4. Trivial troponin elevation; peak 71. Type II, demand ischemia 5. GONZALO; improved 6. Thrombocytopenia, coagulopathy 7. H/o hypertension; presently low end 8. Hyperlipidemia; statin 9. Fevers 10. Hypokalemia 11. Encephalopathy Recommendations Awaiting records from [facility] Continue amiodarone for rhythm maintenance Coreg as BP allows No ASA or OAC given anemia, thrombocytopenia, coagulopathy Plans for transfer for ortho evaluation given acute lumbar fracture Supportive care CHRIS DE OLIVEIRA APRN Jun 20, 2021 08:11
[2021-06-20] MEDS ORDERED: POTASSIUM CHLORIDE 20 MEQ TABLET.ER. PO ONE (08:15)
[2021-06-20 09:42] LABS: BASO % 0 % (0-3); EOS % 0 % (0-3); HEMATOCRIT 35.4 % (36.0-47.0); HEMOGLOBIN 11.7 g/dL (12.0-15.5); LYMPH # 0.5 x10^3/uL (1.0-4.8); LYMPH % 7 % (24-48); MEAN CORPUSCULAR HEMOGLOBIN 31 pg (25-35); MEAN CORPUSCULAR HGB CONC 33 g/dL (31-37); MEAN CORPUSCULAR VOLUME 94 fL (79-100); MONO % 14 % (0-9); NEUT # 5.6 x10^3uL (1.8-7.7); NEUT % 79 % (31-73); PLATELET COUNT 68 x10^3/uL (140-400); RED BLOOD COUNT 3.78 x10^6/uL (3.50-5.40); RED CELL DISTRIBUTION WIDTH 16.5 % (11.5-14.5)
[2021-06-20] MEDS: LIDOCAINE (700MG/PATCH) PATCH. TD SCH (09:51)
[2021-06-20] MEDS: POTASSIUM CHLORIDE 10 MEQ TABLET.ER. PO SCH (09:52)
[2021-06-20] MEDS: CHOLECALCIFEROL (VITAMIN D3) 1,000 UNIT TABLET PO SCH (09:52)
[2021-06-20] MEDS: AMIODARONE HCL 200 MG TABLET. PO SCH (09:52)
[2021-06-20] MEDS: CARVEDILOL 12.5 MG TABLET PO SCH (09:53)
[2021-06-20] MEDS: CYANOCOBALAMIN (VITAMIN B-12) 250 MCG TABLET. PO SCH (09:54)
[2021-06-20 10:38] VITALS: BP 129/70
--- NOTE | 2021-06-20 10:40 | RAD ---
EXAM: Head CT without contrast. HISTORY: Mental status changes. TECHNIQUE: Computed tomographic images of the head were obtained without contrast. *One or more of the following individualized dose reduction techniques were utilized for this examina tion: 1. Automated exposure control. 2. Adjustment of the mA and/or kV according to patient size. 3. Use of iterative reconstruction technique. COMPARISON: 06/18/2021. FINDINGS: The exam is limited due to motion. There is no mass effect or midline shift. There is no hy drocephalus. There is stable encephalomalacia within the right frontal lobe. There are overlying cran iotomy changes. There is diffuse calvarial thickening and hyperostosis frontalis interna. No orbital lesion is seen. The paranasal sinuses mastoid air cells are clear. IMPRESSION: 1. Significantly limited exam due to motion. Note is made that MRI is more sensitive for acute infarc tion. 2. Encephalomalacia within the right frontal lobe with overlying frontoparietal craniotomy changes. Electronically signed by: Debbie Dean MD (06/20/2021 10:37 AM) [id number]
[2021-06-20 14:51] VITALS: BP 138/73
[2021-06-20] MEDS ORDERED: WARFARIN 7.5 MG TABLET. PO SCH (16:00)
--- NOTE | 2021-06-20 23:02 | PN ---
SUBJECTIVE: The patient is resting flat in bed, in no apparent respiratory distress. She is very confused, hallucinating, attempting to touch things that are not there. This is a dramatic change in her mentation from the day she came in. We held all her medications that might be contributing to her change in mental status. In fact, we have cut down even her amitriptyline, discontinued all her pain medication. I stopped hydrocodone and Ambien and cut down the amitriptyline. Her lab work are all within acceptable range. Her white cell count is normal. His hemoglobin, hematocrit and platelets are low, but she is actually better today than the day of admission. We did her blood gases with no evidence of carbon dioxide retention. Her chemistry is normal, apart from mild hypokalemia. Her prothrombin time and INR are actually down from 47.8 and 4.7, down to 20.4 and 2. Urinalysis was essentially unremarkable and her toxic screen was positive for opioids, but she has not received any. Her influenza A and B were negative. Her coronavirus the PCR was negative. CT scan of the head, one done on the day of admission around and one again today, and both of them showed that she has postsurgical changes of the right frontotemporal craniotomy with small area of underlying encephalomalacia, but there is no intra or extraaxial mass, fluid collection, no acute hemorrhage. The ventricles are normal in size, shape, and morphology. The jackson-white matter junction is normal. The basal cisterns are patent. The visualized paranasal sinuses are normal. The visualized portion of the orbits and globes are normal. The mastoid air cells are clear. No aggressive osseous lesions or fracture. PHYSICAL EXAMINATION: GENERAL: When I examined her, she was somewhat pale, but not jaundiced or cyanosed, no lymphadenopathy, no thyromegaly, no jugular venous distention. No lower limb edema. VITAL SIGNS: Her heart rate was 89, blood pressure was 129/70, temperature was 98.1, respiratory rate 20, and oxygen saturation was 93% on room air. HEAD, EYES, EARS, NOSE, AND THROAT: Normocephalic, atraumatic. NECK: Supple. HEART: Showed normal first and second heart sounds. No gallop or murmur. CHEST: Clear to auscultation. No crepitation or rhonchi. ABDOMEN: Distended, soft, nontender. NEUROLOGIC: She was very confused, hallucinating, talking about dogs in a cage and the man with bruises on his face and wanting to see her mother. Apparently, she has been crying off and on for her mother and because she could not find carnival. The patient undressed and pulled cords and tubes. ___ used unsuccessfully. The patient pulled out her IV, which has not yet been replaced. Music, heat and cold and guided imagery and therapeutic conversation used to help with pain control and relaxation. The patient is redirectable at times, but quickly or forgets. LABORATORY DATA: Her lab work today showed a white cell count 7000, hemoglobin 11.7, hematocrit 35, MCV 94 and platelet count of 68,000. Her chemistry showed a serum sodium 138, potassium 3.2, chloride 101, bicarbonate 29, anion gap of 8, BUN 36, creatinine 1, estimated GFR was 53 mL per minute. Her glucose was 124, calcium was 9.2. Total bilirubin, AST, ALT, alkaline phosphatase were normal. Total protein 6.3, albumin was 2.9. Her prothrombin time was 20.4, INR of 2. Urinalysis essentially unremarkable. ASSESSMENT: 1. Altered mental status, so far, there is no obvious explanation for her encephalopathy as all her chemistry, lab work, her serology including influenza A and B and coronavirus are negative. Her blood gas showed no carbon dioxide narcosis. We did discontinue all her pain medication including hydrocodone. We stop the Ambien and we cut down on amitriptyline. 2. Recurrent falls. 3. Acute L1 compression fracture. 4. Congestive heart failure. 5. Normochromic normocytic anemia. 6. Thrombocytopenia. 7. Acute on chronic renal failure. PLAN: Continue with her current medication. I will hold her Coumadin for now as he might be a candidate for vertebroplasty after she was seen by the interventional radiologist. She was accepted at [facility], who obviously consult the drug and alcohol counselor and neurologist as well as the interventional radiologist. She might require MRI of her brain as well as MRI of lumbar spine. DONTRELL DR: Gillian TID: [id number]
--- NOTE | 2021-06-21 14:12 | CONS ---
DATE OF CONSULTATION: 06/20/2021 NEUROLOGY CONSULT REFERRING PHYSICIAN: Dr. Whitney. REASON FOR CONSULTATION: Mental status changes. HISTORY OF PRESENT ILLNESS: This is an 80-year-old right-handed female who was admitted through Emergency Room on 06/18/2021 on account of severe localized lower back pain and frequent falls. According to the patient, she has been falling several times in the past and the last fall was 2 days ago, which caused severe localized lower back pain. She has been nauseated and vomiting in the last few days. The patient has been complaining of weakness of the lower extremities with recurrent fever. Currently, she denies chest pain, shortness of breath or palpitation. She also denies headaches or vertigo. The patient has been treated conservatively, has been given fentanyl for lower back pain and she takes Ambien at night for insomnia. This morning, the patient was found to have acute mental status changes. She becomes more confused and disoriented. Neuro consult was requested immediately for further evaluation. A head CAT scan revealed evidence of encephalomalacia confined to the right frontal lobe along with frontoparietal craniotomy, probably due to evacuation of hematoma resulted from frequent falls; however, the exact reason for craniectomy is not known at this time. A CT of the lumbar spine revealed acute L5 compression deformity, probably acute vertebral fracture. The patient denies headaches at this time or visual disturbances. PAST MEDICAL HISTORY: Significant for diabetes mellitus type 2, hypertension, paroxysmal atrial fibrillation, congestive heart failure, kidney stones, and hypothyroidism. PAST SURGICAL HISTORY: Positive for right frontoparietal craniotomy, aortic and mitral valve replacement, liver cyst replacement, appendectomy, bilateral cataract extraction and cholecystectomy. FAMILY HISTORY: Noncontributory. SOCIAL HISTORY: The patient denies smoking, alcohol drinking or illicit drug use. CURRENT MEDICATIONS: Include allopurinol, amiodarone, amitriptyline, amlodipine, Lipitor, carvedilol, vitamin B12, furosemide, hydrocodone, ibuprofen, levothyroxine, losartan, potassium, vitamin D, zolpidem, Coumadin and metformin. ALLERGIES: IODINATED CONTRAST MEDIA, SULFA DRUGS, ADHESIVE TAPE, CODEINE AND MORPHINE. REVIEW OF SYSTEMS: A 12-point review of system was performed as mentioned above in history of present illness, otherwise unremarkable. PHYSICAL EXAMINATION: GENERAL: Obese female in no acute distress. She weighs 101 kilos. VITAL SIGNS: Blood pressure 119/77, respiratory rate 20, pulse is 78, oxygen saturation 93% and temperature 98.1. HEENT: Normocephalic, atraumatic, otherwise unremarkable. NECK: Supple, negative for carotid bruit, lymphadenopathy or thyromegaly. LUNGS: Clear to A and P. CARDIOVASCULAR: Regular rhythm. Normal S1, S2. There is a 2/6 systolic murmur, probably due to aortic stenosis. ABDOMEN: Soft, extended. Bowel sounds positive. No palpable mass, organomegaly or tenderness. EXTREMITIES: Negative for cyanosis, clubbing or pedal edema. NEUROLOGIC: Mental status: The patient is awake and alert. She knows she is in the hospital. Speech is fluent. There is no language dysfunction. Memory, judgment and abstracting thinking are fair. The patient denies hallucination or delusion. Cranial nerves: Visual romero are full. The pupils are reactive to light and accommodation. The extraocular movements are intact. There is no nystagmus. There is no facial motor or sensory deficit. Hearing is intact. The palate is elevated symmetrically. Sternocleidomastoid muscles are powerful bilaterally. The patient shrugs her shoulders symmetrically, protrudes her tongue in the midline without fasciculation or atrophy. Motor exam: No focal muscle bulk wasting. The tone is normal. The strength is 4/5 throughout. Straight leg raising test was negative bilaterally. Motor examination revealed no focal muscle bulk wasting. The strength was 4/5 throughout. Sensory examination revealed a diminished pinprick and light touch senses in patchy distributions in distal lower extremities. Deep tendon reflexes were symmetric and hypoactive with absent Achilles responses. Gait not tested. LABORATORY DATA: CBC revealed blood cells of 7000, hemoglobin 11.7, hematocrit 35.4 and platelet count 68,000. Chemistry reveals sodium of 138, potassium 3.2, chloride 101, CO2 of 29, BUN 36, creatinine 1, glucose 124, calcium 9.2, bilirubin is 1.1, AST is elevated at 44 with normal ALT. DIAGNOSTIC DATA: A head CT scan and lumbar spine CT scan as mentioned above in the history of present illness. Cervical CT revealed no acute cervical spine fracture or any other abnormalities. Abdominal and pelvic CT revealed again acute L5 compression deformities, colonic diverticulosis, nonobstructive renal calculi, and multiple pulmonary nodules. Urinalysis from 06/19/2021 revealed negative urinary leukocyte esterase with no white blood cells. Coronavirus PCR test is non-detected. IMPRESSION: 1. Mental status changes, multifactorial probably due to underlying metabolic derangement and recent fall with lower back pain; however, at this age, side effects of sedation should be considered as well. 2. Multiple medical problems includes anemia, diabetes mellitus, hypertension, hyperlipidemia, chronic congestive heart failure with need for listhesis and hypothyroidism along with chronic renal insufficiency. 3. Thrombocytopenia. RECOMMENDATIONS: 1. Continue with current medical care initiated by Dr. Whitney. 2. Avoid excessive sedation and use of narcotics as possible. CHRIS/AGATA/SACHA DR: Shilo TID: [id number]
[2021-06-21] MEDS ORDERED: WARFARIN 7.5 MG TABLET. PO SCH (16:00)
[2021-06-23] MEDS ORDERED: WARFARIN 7.5 MG TABLET. PO SCH (16:00)
== END 2021-06-20 16:20 | disposition short-term general hospital (02) | DRG 542 ==
LOC: ER 02:23 → 1 SOUTH 09:20 → ER 14:15
PROVIDERS: ADMIT Internal Medicine; ATTEND Internal Medicine
DX: M48.56XA Collapsed vertebra, not elsewhere classified, lumbar region, initial encounter for fracture (principal); I50.33 Acute on chronic diastolic (congestive) heart failure; N17.0 Acute kidney failure with tubular necrosis; G93.40 Encephalopathy, unspecified; D68.9 Coagulation defect, unspecified; I13.0 Hypertensive heart and chronic kidney disease with heart failure and stage 1 through stage 4 chronic kidney disease, or unspecified chronic kidney disease; I24.8 Other forms of acute ischemic heart disease; J98.11 Atelectasis; Z20.822 Contact with and (suspected) exposure to COVID-19; D64.9 Anemia, unspecified; D69.6 Thrombocytopenia, unspecified; E11.22 Type 2 diabetes mellitus with diabetic chronic kidney disease; E78.00 Pure hypercholesterolemia, unspecified; E78.5 Hyperlipidemia, unspecified; E87.6 Hypokalemia; E89.0 Postprocedural hypothyroidism; G47.00 Insomnia, unspecified; I25.10 Atherosclerotic heart disease of native coronary artery without angina pectoris; G89.29 Other chronic pain; R29.6 Repeated falls; I48.0 Paroxysmal atrial fibrillation; K57.30 Diverticulosis of large intestine without perforation or abscess without bleeding; N18.9 Chronic kidney disease, unspecified; N20.0 Calculus of kidney; Z79.01 Long term (current) use of anticoagulants; Z80.7 Family history of other malignant neoplasms of lymphoid, hematopoietic and related tissues; Z87.442 Personal history of urinary calculi; Z87.891 Personal history of nicotine dependence; Z95.3 Presence of xenogenic heart valve; Z98.41 Cataract extraction status, right eye; Z98.42 Cataract extraction status, left eye; Z88.5 Allergy status to narcotic agent; Z88.2 Allergy status to sulfonamides; Z91.041 Radiographic dye allergy status
CPT/HCPCS: 36415; 70450; 71250; 72125; 72131; 74022; 74176; 80048; 80053; 80076; 80307; 81001; 82550; 82803; 82947; 83605; 83690; 83735; 83880; 84443; 84484; 85025; 85027; 85379; 85610; 85730; 87086; 87426; 87804; 93005; 96365; 96366; 96375; J1940; J3010; J3430; J3475; J7120; U0003; 99285-25